=== PATIENT | male | born 1980 | race Caucasian/White ===

== ENCOUNTER 2016-11-22 16:53 | Emergency (ER) | payer MEDICAID ==
[~2016-11-22] VITALS: Ht 170.2 cm; Wt 73.1 kg
[2016-11-22 17:18] VITALS: BP 117/73
--- NOTE | 2016-11-22 17:25 | NUR ---
Patient being evaluated by physician at bedside.
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
[2016-11-22] MEDS ORDERED: LIDOCAINE 1% 500 MG/50 ML VIAL INJ ONE (17:30)
--- NOTE | 2016-11-22 17:30 | NUR ---
WOUND CARE DONE BY KARLA SHAH. PT TOLERATED PRCEDURE WELL
[2016-11-22] MEDS ORDERED: LIDOCAINE 1% ED 50 ML ONE (17:34)
--- NOTE | 2016-11-22 17:53 | NUR ---
SUTURE DONE BY DR ROGER. PT TOLERATED PROCEDURE WELL.
[2016-11-22] MEDS ORDERED: NEOMYCIN/POLYMYXIN/BACITRACIN 0.9 GM/1 PKT TP ONE (17:54)
--- NOTE | 2016-11-22 18:04 | NUR ---
PT STS PAIN 3/10 AT THIS TIME. Patient appears to be resting comfortably in bed. Vital Signs within normal limits. Respirations even and unlabored.WILL CONTINUE TO MONITOR.
[2016-11-22 18:32] VITALS: BP 117/73
--- NOTE | 2016-11-22 18:32 | NUR ---
Patient discharged with v/s stable. Written and verbal after care instructions given and explained. Patient verbalized understanding. Ambulatory with steady gait. All questions addressed prior to discharge. Advised to follow up with PMD.
== END 2016-11-22 18:32 | disposition home or self-care (01) ==
LOC: MED 16:53
DX: S61.011A Laceration without foreign body of right thumb without damage to nail, initial encounter (principal); W25.XXXA Contact with sharp glass, initial encounter; Y93.89 Activity, other specified; Y92.89 Other specified places as the place of occurrence of the external cause; Y99.8 Other external cause status
CPT/HCPCS: 12002; 90471; 90715; 99283; J2001

== ENCOUNTER 2016-11-30 21:56 | Emergency (ER) | payer MEDICAID ==
[~2016-11-30] VITALS: Ht 170.2 cm; Wt 72.1 kg
[2016-11-30 22:09] VITALS: BP 123/72
--- NOTE | 2016-12-01 00:22 | NUR ---
Patient to OF.
--- NOTE | 2016-12-01 00:26 | NUR ---
Dr. Green evaluating patient.
[2016-12-01 00:50] VITALS: BP 116/65
== END 2016-12-01 00:50 | disposition home or self-care (01) ==
LOC: MED 21:56
DX: S61.411D Laceration without foreign body of right hand, subsequent encounter (principal); X58.XXXD Exposure to other specified factors, subsequent encounter
CPT/HCPCS: 99281

== ENCOUNTER 2017-08-08 01:23 | Emergency (ER) | payer SELFPAY ==
[~2017-08-08] VITALS: Ht 167.6 cm; Wt 74.8 kg
[2017-08-08 01:24] VITALS: BP 134/82
--- NOTE | 2017-08-08 01:38 | NUR ---
PT TAKEN TO BED 2
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
[2017-08-08] MEDS ORDERED: methylPREDNISolone SS 125 MG in WATER STERILE 2 ML IM ONE (01:45)
[2017-08-08] MEDS ORDERED: methylPREDNISolone SS 125 MG/2 ML VIAL ONE (01:52)
--- NOTE | 2017-08-08 02:47 | NUR ---
Patient appears to be resting comfortably in bed. Vital Signs within normal limits. Respirations even and unlabored.
[2017-08-08 02:52] VITALS: BP 134/85
--- NOTE | 2017-08-08 02:52 | NUR ---
Patient discharged with v/s stable. Written and verbal after care instructions given and explained. Patient alert, oriented and verbalized understanding of instructions. Ambulatory with steady gait. All questions addressed prior to discharge. ID band removed. Patient advised to follow up with PMD. Rx of BENADRYL 25MG, PREDNISONE 50MG given. Patient educated on indication of medication including possible reaction and side effects. Opportunity to ask questions provided and answered.
== END 2017-08-08 02:52 | disposition home or self-care (01) ==
LOC: MED 01:23
DX: R21 Rash and other nonspecific skin eruption (principal)
CPT/HCPCS: 96372; 99283; J2930; Q0163

== ENCOUNTER 2018-09-23 08:12 | Emergency (ER) | payer MEDICAID ==
[~2018-09-23] VITALS: Ht 165.1 cm; Wt 79.4 kg
[2018-09-23 08:19] VITALS: BP 132/79
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
--- NOTE | 2018-09-23 08:47 | NUR ---
DR FOREMAN AT BEDSIDE
[2018-09-23] MEDS ORDERED: diphenhydrAMINE 50 MG/ML VIAL IM ONE (09:00)
[2018-09-23] MEDS ORDERED: KETOROLAC 60 MG/2 ML VIAL IM ONE (09:00)
--- NOTE | 2018-09-23 09:24 | NUR ---
XRAY AT BEDSIDE
[2018-09-23 09:57] LABS: BARBITURATE, URINE NEG. ng/ml (NEG <=200); BENZODIAZEPINE, URINE NEG. ng/mL (NEG <=200); CANNABINOID, URINE NEG. ng/mL (NEG <=50); COCAINE, URINE NEG. ng/mL (NEG <=300); OPIATE, URINE NEG. ng/mL (NEG <=2000); PHENCYCLIDINE SCREEN,URINE NEG. ng/mL (NEG <=25)
[2018-09-23 10:27] VITALS: BP 131/78
== END 2018-09-23 10:27 | disposition home or self-care (01) ==
LOC: MED 08:12
DX: M54.6 Pain in thoracic spine (principal); M79.10 Myalgia, unspecified site; V43.52XA Car driver injured in collision with other type car in traffic accident, initial encounter; Y93.89 Activity, other specified; Y92.481 Parking lot as the place of occurrence of the external cause; Y99.8 Other external cause status
CPT/HCPCS: 71046; 72040; 72100; 80305; 96372; 99284; J1200; J1885

== ENCOUNTER 2019-06-19 01:50 | Inpatient (IN) | payer SELFPAY ==
[~2019-06-19] VITALS: Ht 162.6 cm; Wt 68.0 kg
[2019-06-19 01:56] VITALS: BP 166/102
[2019-06-19] MEDS ORDERED: KETOROLAC 30 MG/ML VIAL IM ONE (02:30)
[2019-06-19 02:32] LABS: BARBITURATE, URINE NEGATIVE ng/ml (NEG <=200); BENZODIAZEPINE, URINE NEGATIVE ng/mL (NEG <=200); CANNABINOID, URINE NEGATIVE ng/mL (NEG <=50); COCAINE, URINE NEGATIVE ng/mL (NEG <=300); OPIATE, URINE NEGATIVE ng/mL (NEG <=2000); PHENCYCLIDINE SCREEN,URINE NEGATIVE ng/mL (NEG <=25)
[2019-06-19] MEDS ORDERED: ONDANSETRON 4 MG/2 ML VIAL IVP ONE (04:00)
[2019-06-19] MEDS ORDERED: NACL 0.9% 1,000 ML IV ONE (04:00)
[2019-06-19] MEDS ORDERED: MORPHINE SULFATE 4 MG/ML SYR IVP ONE (04:00)
[2019-06-19 04:18] LABS: BASOPHILS # (AUTO) 0.1 K/uL (0.00-0.22); MONOCYTES # (AUTO) 0.6 K/uL (0.8-1.0)
[2019-06-19 04:23] LABS: BASOPHILS % (AUTO) 0.6 % (0.0-2.0); EOSINOPHILS # (AUTO) 0.1 K/uL (0-0.4); EOSINOPHILS % (AUTO) 0.6 % (0.0-4.0); HEMATOCRIT 47.8 % (36-52); HEMOGLOBIN 16.3 g/dL (12.0-18.0); LYMPHOCYTES # (AUTO) 1.7 K/uL (2.0-11.5); LYMPHOCYTES % (AUTO) 20.7 % (20.5-51.1); MEAN CORPUSCULAR HEMOGLOBIN 32 pg (27-31); MEAN CORPUSCULAR HGB CONC 34 g/dL (33-37); MEAN CORPUSCULAR VOLUME 93.5 fL (80-94); MONOCYTES % (AUTO) 7.2 % (1.7-9.3); NEUTROPHILS # (AUTO) 5.7 K/uL (1.8-7.7); NEUTROPHILS % (AUTO) 70.9 % (42.2-75.2); PLATELET COUNT (AUTO) 300 K/uL (140-450); RED BLOOD CELL COUNT(AUTO) 5.11 MIL/uL (4.20-6.10); RED CELL DISTRIBUTION WIDTH 12.4 % (11.6-13.7)
[2019-06-19 04:28] LABS: ANION GAP 13.4 (8-16); CARBON DIOXIDE 26.9 mmol/L (21-32); CREATININE 0.8 mg/dL (0.6-1.3); POTASSIUM 3.3 mmol/L (3.5-5.1)
[2019-06-19 04:37] LABS: PROTHROMBIN TIME 9.9 secs (10.8-13.4)
[2019-06-19] MEDS ORDERED: LIDOCAINE/EPI 1% 1:100000 20 ML VIAL INJ ONE ×2 (04:40→04:41)
[2019-06-19 05:53] LABS: CSF GLUCOSE 73 mg/dL (40-70); CSF PROTEIN 29.7 mg/dL (15-45)
[2019-06-19] MEDS ORDERED: ACETAMINOPHEN 325 MG TAB PO PRN (07:55)
[2019-06-19] MEDS ORDERED: ONDANSETRON 4 MG/2 ML VIAL IVP PRN (07:55)
[2019-06-19 08:50] VITALS: BP 156/105
[2019-06-19] MEDS: NACL 0.9% 1,000 ML IV SCH (08:50)
[2019-06-19] MEDS: DOCUSATE SODIUM 100 MG GELCAP PO SCH ×2 (09:00→21:03)
[2019-06-19 11:37] LABS: FREE T4 (FREE THYROXINE) 0.98 ng/dL (0.76-1.46); PHOSPHORUS 3.2 mg/dL (2.5-4.9); THYROID STIMULATING HORMONE 1.48 uIU/mL (0.34-3.74)
[2019-06-19 11:39] LABS: MAGNESIUM 1.9 mg/dL (1.8-2.4)
[2019-06-19] MEDS ORDERED: POTASSIUM CHLORIDE 10 MEQ TABER PO SCH (14:15)
[2019-06-19 16:00] VITALS: BP 118/71
[2019-06-19] MEDS ORDERED: LORazepam 0.5 MG TAB PO PRN (17:20)
[2019-06-19 18:21] LABS: APPEARANCE,URINE CLEAR (CLEAR); BILIRUBIN,URINE NEGATIVE (NEGATIVE); BLOOD, URINE TRACE-I (NEGATIVE); COLOR,URINE YELLOW (YELLOW); LEUKOCYTE ESTERASE ,URINE NEGATIVE (NEGATIVE); NITRITE, URINE NEGATIVE (NEGATIVE); PH,URINE 6.5 (5.0-9.0); UGLUCOSE NEGATIVE (NEGATIVE)
[2019-06-19 18:27] LABS: WBC,URINE 0-5 /HPF (0-5)
[2019-06-19 20:00] VITALS: BP 128/86
[2019-06-19] MEDS ORDERED: risperiDONE 1 MG TAB PO SCH (21:00)
[2019-06-20] VITALS: BP 120/75
[2019-06-20 04:00] VITALS: BP 116/64
[2019-06-20 05:51] LABS: BASOPHILS # (AUTO) 0.1 K/uL (0.00-0.22); BASOPHILS % (AUTO) 2.5 % (0.0-2.0); EOSINOPHILS # (AUTO) 0.2 K/uL (0-0.4); EOSINOPHILS % (AUTO) 3.1 % (0.0-4.0); HEMATOCRIT 46.8 % (36-52); HEMOGLOBIN 15.6 g/dL (12.0-18.0); LYMPHOCYTES % (AUTO) 36.4 % (20.5-51.1); MEAN CORPUSCULAR HEMOGLOBIN 32 pg (27-31); MEAN CORPUSCULAR HGB CONC 33 g/dL (33-37); MONOCYTES # (AUTO) 0.5 K/uL (0.8-1.0); MONOCYTES % (AUTO) 8.7 % (1.7-9.3); NEUTROPHILS # (AUTO) 2.6 K/uL (1.8-7.7); NEUTROPHILS % (AUTO) 49.3 % (42.2-75.2); PLATELET COUNT (AUTO) 265 K/uL (140-450); RED BLOOD CELL COUNT(AUTO) 4.87 MIL/uL (4.20-6.10); RED CELL DISTRIBUTION WIDTH 12.4 % (11.6-13.7); WHITE BLOOD COUNT (AUTO) 5.4 K/uL (4.8-10.8)
[2019-06-20 06:30] LABS: CARBON DIOXIDE 31.5 mmol/L (21-32); CREATININE 0.9 mg/dL (0.6-1.3); POTASSIUM 4.5 mmol/L (3.5-5.1)
[2019-06-20 06:32] LABS: CHOL/HDL RATIO 5.1 (1-4.5)
[2019-06-20 06:42] LABS: MAGNESIUM 2.2 mg/dL (1.8-2.4); PHOSPHORUS 3.6 mg/dL (2.5-4.9)
[2019-06-20] MEDS: NACL 0.9% 1,000 ML IV SCH (07:55)
[2019-06-20] MEDS: DOCUSATE SODIUM 100 MG GELCAP PO SCH (08:41)
[2019-06-20] MEDS ORDERED: RIS1 PO (08:46)
[2019-06-20] MEDS ORDERED: ESCI20TA47 PO (08:46)
[2019-06-20] MEDS ORDERED: QUEtiapine FUMARATE 25 MG TAB PO SCH (09:00)
[2019-06-20] MEDS ORDERED: ESCITALOPRAM 20 MG TAB PO SCH (09:00)
[2019-06-20 09:33] VITALS: BP 104/65
== END 2019-06-20 11:48 | disposition home or self-care (01) | DRG 103 ==
LOC: MED 01:50 → MTU 07:55
PROVIDERS: ADMIT General Practice; ATTEND General Practice
PROC: 009U3ZX Drainage of Spinal Canal, Percutaneous Approach, Diagnostic (ICD-10-PCS; principal; 2019-06-19)
DX: R51 Headache (principal); F23 Brief psychotic disorder; E87.6 Hypokalemia; F41.1 Generalized anxiety disorder; F32.9 Major depressive disorder, single episode, unspecified; F43.9 Reaction to severe stress, unspecified; G93.0 Cerebral cysts
CPT/HCPCS: 36415; 62270; 70450; 71045; 80048; 80305; 81001; 82140; 82150; 82948; 83036; 83605; 83690; 83735; 83880; 84100; 84157; 84439; 84443; 84484; 85025; 85610; 85730; 87040; 87070; 87081; 87205; 87804; 89051; 96361; 96372; 96374; 99285; G0482; J1885; J2001; J2270; J2405; J7030; Q0092

== ENCOUNTER 2021-05-19 22:29 | Emergency (ER) | payer MEDICAID ==
[~2021-05-19] VITALS: Ht 162.6 cm; Wt 74.8 kg
[~2021-05-19 22:29] MED LIST: ESCI20TA49 PO; RIS1 PO
[2021-05-19 22:52] VITALS: BP 141/69
--- NOTE | 2021-05-19 23:01 | NUR ---
TO BED 7 FOLLOWING TRIAGE
[2021-05-19] MEDS ORDERED: FLUORESCEIN OPTH STRIP 1 MG ONE (23:08)
--- NOTE | 2021-05-19 23:09 | NUR ---
Dr. Hernandez examining patient.
[2021-05-19] MEDS ORDERED: TETRACAINE HCL/PF 0.5% OPTH 4 ML BTL ONE (23:13)
[2021-05-19] MEDS ORDERED: TETRACAINE HCL/PF 0.5% OPTH 4 ML BTL OP ONE (23:15)
[2021-05-19] MEDS ORDERED: IBUP-2213 PO (23:23)
[2021-05-19] MEDS ORDERED: ERYT5OIN58 OP (23:23)
--- NOTE | 2021-05-19 23:29 | NUR ---
manual eye irrigation performed on pt L eye with 500 NS
--- NOTE | 2021-05-19 23:45 | NUR ---
patient cleared for dc with ED MD. Discharge instructions reinforced. VS stable on dc.
[2021-05-19 23:46] VITALS: BP 124/78
== END 2021-05-19 23:45 | disposition home or self-care (01) ==
LOC: MED 22:29
DX: T15.02XA Foreign body in cornea, left eye, initial encounter (principal); Z79.899 Other long term (current) drug therapy; X58.XXXA Exposure to other specified factors, initial encounter; Y93.89 Activity, other specified; Y92.89 Other specified places as the place of occurrence of the external cause; Y99.8 Other external cause status
CPT/HCPCS: 99283